=== PATIENT | female | born 1965 | race Caucasian/White ===

== ENCOUNTER 2019-04-03 18:47 | Inpatient (IN) | payer MEDICARE ==
[2019-04-03] MEDS ORDERED: Naloxone HCl 0.4 mg/ml Vial ONE ×2 (18:58→20:45)
[2019-04-03 19:44] LABS: #Eosinphils 0.2 thou/uL (0.0-0.7); #Lymphocytes 1.8 thou/uL (1.20-3.40); #Monocytes 0.6 thou/uL (0.11-0.59); #Neutrophils 2.9 thou/uL (1.40-6.50); %Basophils 0.3 % (0.0-1.0); %Eosinophils 4.3 % (0.0-10.0); %Lymphocytes 32.5 % (21.0-51.0); %Monocytes 10.2 % (0.0-10.0); %Neutrophils 52.7 % (42.0-75.0); Hemoglobin 11.6 g/dL (12.0-16.0); Mean Corpuscular HGB CONC 32.6 g/dL (32.0-36.0); Mean Corpuscular Hemoglobin 25.8 pg (27.0-31.0); Mean Corpuscular Volume 79.1 fL (78.0-98.0); Platelet Count 312 thou/uL (130-400); RBC Distribution Width 13.9 % (11.5-14.5); White Blood Cell (WBC) Count 5.5 thou/uL (4.8-10.8)
--- NOTE | 2019-04-03 19:49 | CT ---
Exam: CT brain PROVIDED CLINICAL HISTORY: Altered mental status COMPARISON: 02/07/2013 FINDINGS: The ventricular system is normal in size and morphology. No evidence for intracranial hemorrhage or mass effect. The extracranial soft tissues and osseous structures demonstrate no evidence for an acute abnormality. IMPRESSION: No evidence for intracranial hemorrhage or mass effect.
[2019-04-03 20:06] LABS: Acetaminophen Less than 6.0 mcg/mL (10.0-30.0); Alcohol Less than 10 mg/dL (Less than 10); CK (CPK) 73 U/L (29-168); Salicylate Less than 8.0 mg/dL (15.0-30.0)
[2019-04-03 20:07] LABS: ALT (SGPT) Less than 7 U/L (8-55); AST (SGOT) 15 U/L (5-34); Albumin 3.7 g/dL (3.5-5.0); Alkaline Phosphatase 81 U/L (40-110); Anion Gap 13 mmol/L (10-20); BUN (Urea Nitrogen) 18 mg/dL (9.8-20.1); Bilirubin, Total 0.2 mg/dL (0.2-1.2); Calc. Creatinine Clearance 0 mL/min (70-130); Calcium 9.3 mg/dL (7.8-10.44); Carbon Dioxide 26 mmol/L (22-29); Chloride 102 mmol/L (98-107); Estimated GFR-MDRD 76; Globulin 3.5 g/dL (2.4-3.5); Glucose 111 mg/dL (70-105); Potassium 3.8 mmol/L (3.5-5.1); Protein, Total 7.2 g/dL (6.0-8.3); Sodium 137 mmol/L (136-145)
[2019-04-03] MEDS ORDERED: Norepinephrine 8 MG/0.9% NS 250 ML ONE (21:06)
[2019-04-03] MEDS ORDERED: Succinylcholine Chloride 20 MG/ML 10 ml SYRINGE FS ONE (21:09)
[2019-04-03] MEDS ORDERED: Propofol 1,000 MG/100 ML VIAL IV ONE (21:23)
[2019-04-03] MEDS ORDERED: Fentanyl 100 MCG/2 ML VIAL ONE (21:54)
[2019-04-03 22:09] LABS: Actual Bicarbonate (HCO3a) 18.7 mEq/L (22-28); Analyzer IN Cardio ER; Base Excess (BEa) -5.9 mEq/L (-2.0 to +3.0); CO2 Tension 33.5 mmHg (35.0-45.0); Calcium, Ionized 1.13 mmol/L (1.12-1.30); Carboxyhemoglobin (COHb) 0.8 gm% (0.0-3.0); Hemoglobin (Hb) 11.3 g/dL (12.0-16.0); O2 Tension (PaO2) 166.1 mmHg (80.0-100.0); pH, Arterial 7.36 (7.35-7.45)
[2019-04-03 22:12] LABS: ALV-art Gradient 148.525 (0-20); Puncture Site LRA
--- NOTE | 2019-04-03 22:18 | RAD ---
EXAM: XR Chest 1 View Portable PROVIDED CLINICAL HISTORY: Respiratory insufficiency COMPARISON: 05/20/2014 FINDINGS: Cardiac and mediastinal silhouette is within normal limits. Endotracheal tube tip is within the proxi mal right main bronchus. Enteric catheter is noted the tip of which is not visualized but is below the diaphragm. Bibasilar airspace disease, possibly reflecting subsegmental atelectasis or infiltrate . Innumerable bilateral calcified nodules are again seen. IMPRESSION: 1. ET tube positioning as described. Recommend retraction. 2. Bibasilar airspace disease, subsegmental atelectasis versus
--- NOTE | 2019-04-03 22:28 | RAD ---
EXAM: XR Chest 1 View Portable PROVIDED CLINICAL HISTORY: Respiratory insufficiency COMPARISON: 04/03/2019 FINDINGS: Interval retraction of ET tube, with tip now projecting in the region of the thoracic inlet. Addition al significant interval change with respect to the prior examination is not evident. IMPRESSION: As above.
[2019-04-03 22:50] LABS: Bilirubin Negative (Negative); Blood, Urine Negative (Negative); Clarity Clear (Clear); Glucose, Urine (Dipstick) Normal (Negative); Leukocyte Negative Leu/uL (Negative); Mucous/LPF 2+ LPF (<2+); Nitrite Negative (Negative); Pregnancy Test - Urine (BHCG) Negative (Negative); Pregu Control Background? CLEAR/WHITE (CLR/WHITE); Pregu Control Bar Appear? YES (CONTROL BAR); Protein, Urine (Dipstick) 200 mg/dL (Neg-Trace); RBC/HPF 0-3 HPF (0-3); Specific Gravity 1.027 (1.002-1.036); Squamous Epithelial 0-3 HPF (0-3); WBC/HPF 0-3 HPF (0-3)
[2019-04-03 22:55] LABS: Medtox Reader # READER 1
[2019-04-03 22:56] LABS: Amphetamine Detected (NotDetected); Barbiturates Screen Not Detected (NotDetected); Benzodiazepine Screen Detected (NotDetected); Cocaine Metabolite Screen Not Detected (NotDetected); Medtox Control Line Valid? VALID (VALID); Methadone Not Detected (NotDetected); Methamphetamine Detected (NotDetected); Opiate Screen Not Detected (NotDetected); Oxycodone Screen Not Detected (NotDetected); Phencyclidine (PCP) Not Detected (NotDetected); THC/Cannabinoid Screen Not Detected (NotDetected); Tricyclic Screen Not Detected (NotDetected)
[2019-04-03 22:58] LABS: Bacteria/HPF Rare-Few HPF (None Seen)
--- NOTE | 2019-04-03 23:05 | PDOC.FPRHP ---
- History of Present Illness Chief Complaint: Overdose History of Present Illness: Ms. Bran is a 54yoF who, per her brother, locked herself in the closet today and took an unknown amount of several medications. Some of the suspected medications include gabapentin, hydroxychloroquine, venlaflaxine, prochlorperazine, and quetiapine. Other history is unobtainable at this time. ED Course: She was intubated, a central line was placed, and she was started on pressors. Fentanyl 100mcg, Propofol, Levophed (5), Succinylcholine, Etomidate, Narcan X2, 2.5L NS - Allergies/Adverse Reactions Allergies Allergy/AdvReac Type Severity Reaction Status Date / Time morphine Allergy Verified 05/20/14 05:15 TPI 287 Allergy Uncoded 05/20/14 05:16 - Home Medications Medication Instructions Recorded Confirmed Type ALPRAZolam [Xanax] 0.5 mg PO BID PRN 06/30/13 05/20/14 History Dicyclomine HCl 20 mg PO QID PRN 06/30/13 05/20/14 History Divalproex Sodium 500 mg PO BID 06/30/13 05/20/14 History Naproxen Sodium [Aleve] 220 mg PO PRN 06/30/13 05/20/14 History Omeprazole/Sodium Bicarbonate 1 cap PO DAILY 06/30/13 05/20/14 History [Zegerid] Venlafaxine HCl [Effexor XR] 150 mg PO DAILY 06/30/13 04/04/19 History Celecoxib [Celebrex] 200 mg PO BID 05/20/14 05/20/14 History Gabapentin 600 mg PO DAILY 04/04/19 04/04/19 History - History PMHx: Anxiety/Depression Brain tumor Stage 4 Melanoma s/p radiation Granulomatous lung disease PSHx: Hysterectomy (1999) C-Secition Sinus surgery Tonsillectomy/Adenoidectomy Left lymphnodectomy Gamma knife radiation Arthroscopy R Lung nodule biopsy FHx: HTN, Colon cancer (mom), DM II, CAD Social: Tobacco use smokes 1-1.5ppd History of intranasal cocaine use Unknown alcohol use. - Review of Systems ROS unobtainable: due to endotracheal tube - Vital signs Selected Entries 04/04/19 00:00 Respiratory 14 Rate O2 Sat by Pulse 100 Oximetry Oxygen Delivery Mechanical Method Ventilator % Fraction of 50 Inspired Oxygen (FIO2) Selected Entries 04/04/19 00:15 Heart Rate from 85 ECG NIBP 131/87 NIBP BP-Mean 101 Respiration 14 from ECG SpO2 100 Ventricular 0 Premature Contraction Freq - Physical Exam Constitutional: NAD -Constitutional: Intubated and sedated HEENT: normocephalic and atraumatic, PERRLA, conjunctiva clear, MMM, oropharynx clear Neck: supple, trachea midline Heart: RRR, normal S1/S2 Lungs: CTAB, no respiratory distress, good air movement Abdomen: soft, bowel sounds present Musculoskeletal: normal structure, normal tone Skin: no rash/lesions, good turgor Heme/Lymphatic: no unusual bruising or bleeding, no purpura FMR H&P: Results - Labs Result Diagrams: 04/04/19 02:17 04/04/19 02:17 Lab results: WBC 5.5 thou/uL (4.8-10.8) 04/03/19 19:21 Hgb 11.6 g/dL (12.0-16.0) L 04/03/19 19:21 Hct 35.6 % (36.0-47.0) L 04/03/19 19:21 MCV 79.1 fL (78.0-98.0) 04/03/19 19:21 Plt Count 312 thou/uL (130-400) 04/03/19 19:21 Neutrophils % 52.7 % (42.0-75.0) 04/03/19 19:21 ABG pH 7.36 (7.35-7.45) 04/03/19 22:00 ABG pCO2 33.5 mmHg (35.0-45.0) L 04/03/19 22:00 ABG pO2 166.1 mmHg (80.0-100.0) H 04/03/19 22:00 Sodium 137 mmol/L (136-145) 04/03/19 19:21 Potassium 3.8 mmol/L (3.5-5.1) 04/03/19 19:21 Chloride 102 mmol/L (98-107) 04/03/19 19:21 Carbon Dioxide 26 mmol/L (22-29) 04/03/19 19:21 BUN 18 mg/dL (9.8-20.1) 04/03/19 19:21 Creatinine 0.79 mg/dL (0.6-1.1) 04/03/19 19:21 Glucose 111 mg/dL (70-105) H 04/03/19 19:21 Calcium 9.3 mg/dL (7.8-10.44) 04/03/19 19:21 Total Bilirubin 0.2 mg/dL (0.2-1.2) 04/03/19 19:21 AST 15 U/L (5-34) 04/03/19 19:21 ALT Less than 7 U/L (8-55) L 04/03/19 19:21 Alkaline Phosphatase 81 U/L (40-110) 04/03/19 19:21 Creatine Kinase 73 U/L (29-168) 04/03/19 19:21 Serum Total Protein 7.2 g/dL (6.0-8.3) 04/03/19 19:21 Albumin 3.7 g/dL (3.5-5.0) 04/03/19 19:21 Urine Ketones Negative mg/dL (Negative) 04/03/19 22:33 Urine Blood Negative (Negative) 04/03/19 22:33 Urine Nitrite Negative (Negative) 04/03/19 22:33 Ur Leukocyte Esterase Negative Chely/uL (Negative) 04/03/19 22:33 Urine RBC 0-3 HPF (0-3) 04/03/19 22:33 Urine WBC 0-3 HPF (0-3) 04/03/19 22:33 Ur Squamous Epith Cells 0-3 HPF (0-3) 04/03/19 22:33 Urine Bacteria Rare-Few HPF (None Seen) 04/03/19 22:33 - Radiology Interpretation Chest x-ray Status: report reviewed by me (FINDINGS: Cardiac and mediastinal silhouette is within normal limits. Endotracheal tube tip is within the proxi mal right main bronchus. Enteric catheter is noted the tip of which is not visualized but is below the diaphragm. Bibasilar airspace disease, possibly reflecting subsegmental atelectasis or infiltrate . Innumerable bilateral calcified nodules are again seen. IMPRESSION: 1. ET tube positioning as described. Recommend retraction. 2. Bibasilar airspace disease, subsegmental atelectasis versus Second CXR showed proper placement of tube) CT scan - head Status: report reviewed by me (IMPRESSION: No evidence for intracranial hemorrhage or mass effect.) FMR H&P: A/P - Problem List (1) Overdose Current Visit: Yes Status: Acute Code(s): T50.901A - POISONING BY UNSP DRUG/ MEDS/BIOL SUBST, ACCIDENTAL, INIT (2) Blood clot of neck vein Current Visit: No Status: Acute Code(s): I82.90 - ACUTE EMBOLISM AND THROMBOSIS OF UNSPECIFIED VEIN (3) Cocaine abuse Current Visit: No Status: Acute Code(s): F14.10 - COCAINE ABUSE, UNCOMPLICATED (4) Depression Current Visit: No Status: Acute Code(s): F32.9 - MAJOR DEPRESSIVE DISORDER, SINGLE EPISODE, UNSPECIFIED (5) GERD (gastroesophageal reflux disease) Current Visit: No Status: Acute Code(s): K21.9 - GASTRO-ESOPHAGEAL REFLUX DISEASE WITHOUT ESOPHAGITIS (6) Hyperlipidemia Current Visit: No Status: Acute Code(s): E78.5 - HYPERLIPIDEMIA, UNSPECIFIED (7) Malignant melanoma Current Visit: No Status: Acute Code(s): C43.9 - MALIGNANT MELANOMA OF SKIN , UNSPECIFIED - Plan Polysubstance overdose -unknown amount of several substances ingested including gabapentin, hydroxychloroquine, venlaflaxine, prochlorperazine, and quetiapine. -Will contact poison control for recommendations -Patient is intubated and sedated -Patient is on pressure support with Levophed -Will monitor VSS closely and await metabolization of drugs. -EKG showed Contacted Poison Control @ [phone] and opened case: Their recommendations are as follows, She is at significant risk of serotonin syndrome or neuroleptic malignant syndrome with this combination of medications. Closely monitor for hyperthermia , rigidity, or tremors. If she exhibits since of cardiac ectopy, increase magnesium concentration >2, if it persists, give mag to a level of 4-5. Common OD reactions are listed below. Hydroxychloroquine - significant cardiac arrhythmias, sudden . Monitor serial ekgs Prochlorperazine - sudden /seizures/NMS Seroquel - anticholinergic symptoms (urinary retention, dry) Venlafaxine - serotonin syndrome Gabapentin - sedation Disposition/LOS: Dispo: Stable, inpatient ICU expected LOS > 48 hours. Code: Full GI PPX: Pepcid VTE: Lovenox FMR H&P: Upper Level - Pertinent history 54 year old female presents via EMS from home after intentional OD. Patient's brother reportedly called EMS and left, so he was unavailable for discussion regarding events leading up to patient's OD. Per EMS, there were several empty medication bottles present at the seen to include venlafaxine, seroquel, hydroxychloroquine, prochlorperazine, gabapentin. Patient last seen at our clinic in June of 2018. She was not on a majority of those medications based on clinic records. Patient also tested positive for methamphetamines, amphetamines, and benzo's on UDS. Patient intubated and sedates. Unable to supply history at this time. Patient has significant history anxiety, depression , and polysubstance abuse. Patient has had suicidal ideations in the past. - Pertinent findings General: Sedated and on ventilator. HEENT: MMM. PERRL. Card: RRR, no murmurs Resp: CTA, mechanically ventilated Abdomen: Soft, no distention Ext: Left arm swelling, likely 2/2 lymph node resection from cancer, no lower extremity swelling - Plan Date/Time: 04/03/19 2305 IAdenike, have evaluated this patient and agree with findings/plan as outlined by environmental intern resident. Pertinent changes/additions are listed here. Polysubstance overdose - Suicidal attempt; will need [facility] when medically stable - Currently on ventilator and sedated - UDS also positive for methamphetamines, amphetamines and benzos - Dr. Maher called and spoke to Poison Control. Given no significant QT prolongation or associated ectopy, recommend repeat EKG now and in AM to assess for changes - Patient high risk for serotonin syndrome given combination of medications presumed to be ingested; monitor temperature closely. Also monitor for rigidity and pupillary dilation. - Pulmonology has already been consulted; appreciate recs - Initial EKG showed sinus tachycardia with QT 471 - Electrolytes WNL, Mg pending - Will give mag if ectopy develops or QT prolongation worsens per Poison Control recommendations. Poor compliance - Has not been seen at our clinic since 06/2018 - Uncertain where patient is getting medications she ingested Tobacco use - Documented in clinic history DVT PPX: Lovenox Code Status: Full Dispo: Admit to CCU. Monitor closely. Case open with Poison Control. Addendum - Attending - Attending Attestation Date/Time: 04/04/19 0054 I personally evaluated the patient and discussed the management with Dr. Jo and Dr. Maher I agree with the History, Examination, Assessment and Plan documented above with any addition or exceptions noted below. unfortunate female admitted for suicide attempt and multiple drug over dose. currently intubate. no family present. history obtained by staff. poison control contacted. Caroline
[2019-04-04] MEDS ORDERED: Norepinephrine 8 MG/0.9% NS 250 ML IVPB PRN (00:57)
[2019-04-04] MEDS ORDERED: CCU Electrolyte Replacement 1 EACH IVPB SCH (00:57)
[2019-04-04] MEDS ORDERED: Lactated Ringer's 1,000 ML IV SCH (01:00)
[2019-04-04] MEDS ORDERED: Magnesium 2 GM/50 ML 2 GM in Premix Bag 1 BAG IVPB PRN (01:10)
[2019-04-04] MEDS ORDERED: Potassium Phosphate 9 MMOL in Sodium Chloride 0.9% 100 ML IVPB PRN (01:10)
[2019-04-04] MEDS ORDERED: Potassium Chloride 40 MEQ in Premix Bag 1 BAG IVPB PRN (01:10)
[2019-04-04] MEDS ORDERED: CCU ELECTROLYTE REPLACEMENT PROTOCOL FS PRN (01:10)
[2019-04-04] MEDS ORDERED: Potassium Chloride 40 MEQ in Sodium Chloride 0.9% 250 ML 250 ML IVPB PRN (01:10)
[2019-04-04] MEDS ORDERED: Magnesium Oxide 400 MG TAB PO PRN ×2 (01:10)
[2019-04-04] MEDS ORDERED: Potassium Phosphate 12 MMOL in Sodium Chloride 0.9% 250 ML 250 ML IV PRN (01:10)
[2019-04-04] MEDS ORDERED: Potassium Phosphate 15 MMOL in Sodium Chloride 0.9% 250 ML 250 ML IV PRN (01:10)
[2019-04-04] MEDS ORDERED: PHOS-NAK 1 PKT PACK PO PRN ×2 (01:10)
[2019-04-04] MEDS ORDERED: Potassium Chloride 20 MEQ TAB PO PRN (01:10)
[2019-04-04] MEDS ORDERED: Propofol 1,000 MG/100 ML VIAL IV PRN (01:47)
[2019-04-04] MEDS ORDERED: Propofol BOLUS 1,000 MG/100 ML VIAL IV PRN (01:47)
[2019-04-04 02:30] LABS: #Eosinphils 0.3 thou/uL (0.0-0.7); #Lymphocytes 2.3 thou/uL (1.20-3.40); #Monocytes 0.8 thou/uL (0.11-0.59); #Neutrophils 5.5 thou/uL (1.40-6.50); %Basophils 0.1 % (0.0-1.0); %Eosinophils 2.9 % (0.0-10.0); %Lymphocytes 26.1 % (21.0-51.0); %Monocytes 9.1 % (0.0-10.0); %Neutrophils 61.8 % (42.0-75.0); Hemoglobin 10.2 g/dL (12.0-16.0); Mean Corpuscular HGB CONC 32.3 g/dL (32.0-36.0); Mean Corpuscular Hemoglobin 25.6 pg (27.0-31.0); Mean Corpuscular Volume 79.3 fL (78.0-98.0); Mean Platelet Volume 6.9 fL (7.4-10.4); Platelet Count 299 thou/uL (130-400); Red Blood Cell (RBC) Count 3.97 mill/uL (4.20-5.40); White Blood Cell (WBC) Count 8.8 thou/uL (4.8-10.8)
[2019-04-04 02:55] LABS: Anion Gap 11 mmol/L (10-20); BUN (Urea Nitrogen) 17 mg/dL (9.8-20.1); Calc. Creatinine Clearance 85 mL/min (70-130); Calcium 8.3 mg/dL (7.8-10.44); Carbon Dioxide 25 mmol/L (22-29); Chloride 109 mmol/L (98-107); Estimated GFR-MDRD 81; Glucose 98 mg/dL (70-105); Potassium 4.5 mmol/L (3.5-5.1); Sodium 140 mmol/L (136-145)
[2019-04-04] MEDS ORDERED: Magnesium 2 GM/50 ML 2 GM in Premix Bag 1 BAG IVPB SCH (03:00)
[2019-04-04] MEDS ORDERED: Ventilator Sedation Protocol 1 EACH FS SCH (03:00)
[2019-04-04] MEDS ORDERED: DISCONTINUE PREVIOUS NARCOTIC PAIN MEDICATIONS AND BENZODIAZEPINES FS SCH (03:11)
[2019-04-04] MEDS ORDERED: fentaNYL Citrate/PF 2,000 MCG in Sodium Chloride 0.9% 60 ML IV SCH (03:11)
[2019-04-04] MEDS ORDERED: Lorazepam 2 MG/ML VIAL SLOW IVP PRN (03:11)
[2019-04-04] MEDS ORDERED: Fentanyl BOLUS 250 ML IVPB PRN (03:11)
[2019-04-04 07:35] VITALS: BP 91/62
[2019-04-04] MEDS: Enoxaparin Sodium 40 MG/0.4 ML SYRINGE SC SCH (08:49)
[2019-04-04] MEDS: Famotidine/PF 20 mg/2ml Vial SLOW IVP SCH ×2 (08:49→20:00)
--- NOTE | 2019-04-04 08:49 | PDOC.FM ---
- Subjective Subjective: pt resting, intubated. Per nursing pt is following commands on sedation vacation. - Objective Vital Signs & Weight: Vital Signs (12 hours) Temp Pulse Resp BP Pulse Ox 04/04/19 07:34 83 91/62 04/04/19 06:00 14 04/04/19 04:00 98.9 F 14 04/04/19 02:00 14 04/04/19 00:00 97.8 F 14 100 Weight Weight 64.1 kg Most Recent Monitor Data Heart Rate from ECG 79 NIBP 116/75 NIBP BP-Mean 88 Respiration from ECG 14 SpO2 100 I&O: 04/03/19 04/04/19 04/05/19 06:59 06:59 06:59 Intake Total 328.1 Output Total 200 Balance 128.1 Result Diagrams: 04/04/19 02:17 04/05/19 09:28 Phys Exam - Physical Examination Constitutional: NAD HEENT: moist MMs Neck: no JVD, supple Respiratory: no wheezing, no rales Cardiovascular: RRR, no significant murmur Gastrointestinal: soft, non-tender Musculoskeletal: no edema, pulses present sedated Deviation from normal: sedated Skin: no rash, normal turgor Dx/Plan (1) Overdose Code(s): T50.901A - POISONING BY UNSP DRUG/MEDS/BIOL SUBST, ACCIDENTAL, INIT Status: Acute (2) Depression Code(s): F32.9 - MAJOR DEPRESSIVE DISORDER, SINGLE EPISODE, UNSPECIFIED Status : Acute - Plan Plan: Polysubstance overdose A- unknown amount of several substances ingested including gabapentin, hydroxychloroquine, venlaflaxine, prochlorperazine, and quetiapine. Patient is intubated and sedated Contacted Poison Control @ 1230 and opened case: Their recommendations are as follows, She is at significant risk of serotonin syndrome or neuroleptic malignant syndrome with this combination of medications. Closely monitor for hyperthermia , rigidity, or tremors. If she exhibits since of cardiac ectopy, increase magnesium concentration >2, if it persists, give mag to a level of 4-5. Plan- continue IVF -repeat EKG this AM -likely extubate today Common OD reactions are listed below. Hydroxychloroquine - significant cardiac arrhythmias, sudden . Monitor serial ekgs Prochlorperazine - sudden /seizures/NMS Seroquel - anticholinergic symptoms (urinary retention, dry) Venlafaxine - serotonin syndrome Gabapentin - sedation stage 4 metastatic melanoma A- was in remission in last admission in 2014 P- will gain more hx once pt extubated Depression A- uncontrolled P- will consult MHMR once pt is medically stable Disposition/LOS: Code: Full GI PPX: Pepcid VTE: Lovenox Addendum - Attending - Attending Attestation Date/Time: 04/06/19 6808 I personally evaluated the patient and discussed the management with Dr. Guerra I agree with the History, Examination, Assessment and Plan documented above with any addition or exceptions noted below.
[2019-04-04] MEDS: Lactated Ringer's 1,000 ML IV SCH ×4 (08:52→21:38)
[2019-04-04] MEDS ORDERED: DC Sedation Protocol FS ONE (10:05)
--- NOTE | 2019-04-04 10:32 | CON ---
DATE OF CONSULTATION: 04/04/2019 35 minutes of critical care time. I have been consulted to see Ms. Bran who is a 54-year-old admitted to the [facility] Medicine service with a polysubstance overdose. She was intubated because of lethargy. She was hypotensive, had to have a central line placed and was on Levophed. She is currently awake, alert, following commands and probably rated to be extubated. PAST MEDICAL HISTORY: 1. Anxiety. 2. Depression. 3. Brain tumor. 4. Stage IV melanoma. 5. Granulomatous lung disease. PAST SURGICAL HISTORY: 1. Hysterectomy. 2. . 3. Sinus surgery. 4. Tonsillectomy. 5. Gamma knife radiation in the brain. 6. Arthroscopy. 7. Right lung nodule biopsy. FAMILY MEDICAL HISTORY: Remarkable for hypertension, colon cancer, diabetes, and coronary artery disease. SOCIAL HISTORY: Smokes 1 to 1-1/2 half packs per day. Uses cocaine intranasally. Her drug screen is positive for amphetamines, methamphetamines, and benzodiazepines. MEDICATIONS: Prior to admission; 1. Gabapentin. 2. Effexor. 3. Zegerid. 4. Aleve. 5. Divalproex. 6. Dicyclomine. 7. Celebrex. 8. Xanax. Current inpatient medications reviewed, see chart. REVIEW OF SYSTEMS: Cannot be obtained as she is currently on mechanical ventilation. ALLERGIES: MORPHINE. PHYSICAL EXAMINATION: VITAL SIGNS: Temperature 98.9, pulse 79, blood pressure 116/75, O2 saturation 100%. NEUROLOGICAL: She will follow commands without difficulty. HEENT: Otherwise unremarkable. NECK: No adenopathy or JVD. LUNGS: Clear to auscultation. CARDIAC: S1 and S2 regular without murmur. ABDOMEN: Soft and nontender to palpation. EXTREMITIES: No clubbing, cyanosis, or edema. LABORATORY DATA: White blood cell count 8.8, hematocrit 31.5, and platelet count 299. PH of 7.36, pCO2 of 34, PO2 of 166. Sodium 140, potassium 4.5, chloride 109, CO2 of 25, BUN 17, creatinine 0.7, and glucose 98. Chest x-ray shows no mass, effusion. She has scattered interstitial changes bilaterally and looking at the x-rays from 2015 maybe these changes are chronic. ASSESSMENT: 1. Polysubstance overdose with gabapentin, hydroxychloroquine, Effexor, and quetiapine. 2. No obvious laboratory abnormalities or EKG changes that would preclude extubation. PLAN: 1. Extubate and observe. 2. Continue hydration. Job ID: [id number]
[2019-04-05] MEDS: Lactated Ringer's 1,000 ML IV SCH ×2 (04:52→19:19)
[2019-04-05] MEDS: Enoxaparin Sodium 40 MG/0.4 ML SYRINGE SC SCH (07:51)
[2019-04-05] MEDS: Famotidine/PF 20 mg/2ml Vial SLOW IVP SCH ×2 (07:51→21:07)
--- NOTE | 2019-04-05 08:55 | PDOC.FM ---
- Subjective Subjective: Pt resting comfortably, she is more alert, reports feelign tired. Reports she remembers intentionally overdosing. currently denies SI, intent or plan. - Objective Vital Signs & Weight: Vital Signs (12 hours) Temp 04/05/19 04:00 98.2 F 04/05/19 00:00 98.9 F Weight Weight 66.9 kg Most Recent Monitor Data Heart Rate from ECG 95 NIBP 109/66 NIBP BP-Mean 80 Respiration from ECG 20 SpO2 96 I&O: 04/04/19 04/05/19 04/06/19 06:59 06:59 06:59 Intake Total 328.1 4727 Output Total 200 980 Balance 128.1 3747 Result Diagrams: 04/04/19 02:17 04/04/19 02:17 Phys Exam - Physical Examination Constitutional: NAD HEENT: moist MMs, sclera anicteric Neck: no nodes, no JVD Respiratory: no wheezing, no rales Cardiovascular: RRR, no significant murmur Gastrointestinal: soft, non-tender Musculoskeletal: pulses present Neurological: normal sensation, moves all 4 limbs Psychiatric: normal affect Skin: no rash, normal turgor Dx/Plan (1) Overdose Code(s): T50.901A - POISONING BY UNSP DRUG/MEDS/BIOL SUBST, ACCIDENTAL, INIT Status: Acute (2) Depression Code(s): F32.9 - MAJOR DEPRESSIVE DISORDER, SINGLE EPISODE, UNSPECIFIED Status : Acute - Plan Plan: Polysubstance overdose A- Improved. Pt appears to be almost at baseline in mental status. she is medically cleared. unknown amount of several substances ingested including gabapentin, hydroxychloroquine, venlaflaxine, prochlorperazine, and quetiapine. Patient is no longer intubated and sedated P- continue IVF -consult [facility] stage 4 metastatic melanoma -in remission, MD aware Depression -per plan above Disposition/LOS: Code: Full GI PPX: Pepcid VTE: Lovenox
--- NOTE | 2019-04-05 09:30 | EKG ---
Test Reason : FOLLOW UP Blood Pressure : / mmHG Vent. Rate : 081 BPM Atrial Rate : 081 BPM P-R Int : 142 ms QRS Dur : 082 ms QT Int : 428 ms P-R-T Axes : 071 068 059 degrees QTc Int : 497 ms Normal sinus rhythm Possible Left atrial enlargement Prolonged QT Abnormal ECG When compared with ECG of 20-MAY-2014 01:24, QT has lengthened Confirmed by DR. Nelson SCHMIDT (3) on 04/05/2019 9:29:56 AM Referred By: ALYX Confirmed By:DR. Nelson SCHMIDT
--- NOTE | 2019-04-05 09:32 | EKG ---
Test Reason : Blood Pressure : / mmHG Vent. Rate : 082 BPM Atrial Rate : 082 BPM P-R Int : 142 ms QRS Dur : 080 ms QT Int : 418 ms P-R-T Axes : 074 062 056 degrees QTc Int : 488 ms Normal sinus rhythm Prolonged QT Abnormal ECG No previous ECGs available Confirmed by DR. Nelson SCHMIDT (3) on 04/05/2019 9:31:41 AM Referred By: TEODORA *R Confirmed By:DR. Nelson SCHMIDT
[2019-04-05 09:58] LABS: ALT (SGPT) 9 U/L (8-55); AST (SGOT) 20 U/L (5-34); Albumin 2.8 g/dL (3.5-5.0); Alkaline Phosphatase 74 U/L (40-110); Anion Gap 11 mmol/L (10-20); BUN (Urea Nitrogen) 13 mg/dL (9.8-20.1); Bilirubin, Total 0.5 mg/dL (0.2-1.2); Calc. Creatinine Clearance 92 mL/min (70-130); Calcium 8.4 mg/dL (7.8-10.44); Carbon Dioxide 24 mmol/L (22-29); Chloride 102 mmol/L (98-107); Estimated GFR-MDRD 82; Protein, Total 5.8 g/dL (6.0-8.3); Sodium 133 mmol/L (136-145)
[2019-04-05 10:04] LABS: Glucose 43 mg/dL (70-105)
[2019-04-05] MEDS ORDERED: Furosemide 40 MG/4 ML VIAL ONE (14:34)
[2019-04-05] MEDS ORDERED: Furosemide 20 MG/2 ML VIAL SLOW IVP SCH (14:45)
--- NOTE | 2019-04-05 14:55 | PRG ---
DATE OF SERVICE: 04/05/2019 SERVICE: Pulmonary Medicine. INTERVAL HISTORY: The patient is doing really well from respiratory standpoint. She has been extubated comfortably. Her urine output dropped off, so she was given aggressive fluids. She denies any fevers or chills. She is currently not short of breath. She is on clear liquid diet. She is requesting more substantive food. PHYSICAL EXAMINATION: VITAL SIGNS: Afebrile. Pulse 94, blood pressure 129/77, respirations 22, saturations 91%, currently on 2 L nasal cannula. GENERAL: The patient is awake and alert, in no apparent distress. LUNGS: Extensive crackling is present in bibasilar regions. No prolonged expiratory phase is otherwise appreciated. HEART: Normal rate, regular. ABDOMEN: Soft, nontender, nondistended. Bowel sounds are positive. MUSCULOSKELETAL: No cyanosis or clubbing. There is 1 to 2+ pitting in bilateral lower extremities. NEUROLOGIC: Grossly nonfocal. LABORATORY DATA: Glucose 43. Basic metabolic profile and liver function studies are otherwise unremarkable. Urinalysis is negative. Urine drug screen is positive for multiple substances. ASSESSMENT: 1. Acute hypoxic respiratory. 2. Polysubstance drug overdose with gabapentin, hydroxychloroquine, Effexor, and Seroquel. DISCUSSION AND PLAN: I will discontinue her IV fluids. I will give her a dose of Lasix. From a lung standpoint, she is stable for transition out of the hospital or to the medical unit. When that occurs, she will have no further requirements for Pulmonary or Critical Care opinion, and we will sign off. Please call with additional questions or concerns through time. Job ID: [id number]
[2019-04-05] MEDS ORDERED: Acetaminophen 325 MG TAB PO PRN (16:02)
[2019-04-05 20:53] VITALS: TEMP 98.2
[2019-04-06] MEDS ORDERED: Furosemide 20 MG/2 ML VIAL SLOW IVP SCH (09:00)
--- NOTE | 2019-04-06 11:41 | DIS ---
DATE OF ADMISSION: 04/03/2019 DATE OF DISCHARGE: 04/05/2019 ADMITTING ATTENDING: Dr. Shanice Freeman. DISCHARGE ATTENDING: Dr. Bernard Carroll. RESIDENT: Bernard Guerra MD CONSULTS: Pulmonology, Dr. Reggie Ventura. IMAGING: Chest x-ray on 04/03/2019; impression, ET tube in normal placement. On 04/03/2019, brain CT; impression, no evidence for intracranial hemorrhage or mass effect. On 04/03/2019, chest x-ray; impression, ET tube position as described above. Recommend retraction. Bibasilar airspace disease, subsegmental atelectasis. DISCHARGE MEDICATIONS: Home medications resumed at home as listed: 1. Omeprazole/sodium bicarbonate 20 mg/1100 mg one capsule p.o. daily. 2. Aleve 220 mg p.o. p.r.n. 3. Dicyclomine 20 mg p.o. q.i.d. p.r.n. 4. Xanax 0.5 mg p.o. b.i.d. p.r.n. 5. Venlafaxine 150 mg p.o. daily. 6. Divalproex sodium 500 mg p.o. b.i.d. 7. Gabapentin 600 mg p.o. daily. DISCONTINUED MEDICATIONS: Celecoxib 200 mg p.o. b.i.d. PRIMARY DIAGNOSIS: Intentional polysubstance overdose. SECONDARY DIAGNOSES: 1. Uncontrolled depression. 2. History of stage IV metastatic melanoma. HISTORY OF PRESENT ILLNESS/HOSPITAL COURSE: This is a 54-year-old female with history of depression, who presented after polysubstance intentional overdose including several antipsychotics, benzo. Additionally, her urine drug screen showed evidence of methamphetamine and cocaine use. I personally saw the patient for 2 days. The patient was admitted to the CCU and intubated. Additionally, she was put on pressors initially. Poison Control was consulted and recommended watching for prolonged QT interval as well as serotonin syndrome. The patient responded well to IV fluids and rest and was quickly weaned off the pressors and vent. There were no complications with her overdose, and she was deemed medically stable for transfer quickly. [facility] was consulted and stated the patient continued to be discharged to inpatient psychiatry. DISPOSITION: Stable. DISCHARGE INSTRUCTIONS: 1. Location: Inpatient psychiatry. 2. Activity: As tolerated. 3. Diet: No restriction. 4. Followup: Followup as determined by inpatient psych and with primary care physician in 7 days. Job ID: [id number]
--- NOTE | 2019-04-07 06:23 | PQF ---
ARRON Scott JOSEPH [id number] CLINICAL DOCUMENTATION CLARIFICATION FORM: POST DISCHARGE Addendum to original discharge summary date: ____ Late entry note date: __ DATE: 04/07/2018 ATTN:LEEANNA VO Please exercise your independent, professional judgment in responding to the clarification form. Clinical indicators are provided on the bottom of this form for your review Please check appropriate box(s) to clarify if the following diagnosis has been ruled in or ruled out: Acute respiratory failure [ ] Ruled in diagnosis [ ] Continue to treat [ ] Resolved [ ] Ruled out diagnosis [ ] Cannot rule out diagnosis [ ] Other diagnosis [ X ] Unable to determine For continuity of documentation, please document condition throughout progress notes and discharge summary. Thank You. CLINICAL INDICATORS - SIGNS / SYMPTOMS / LABS - Acute hypoxic respiratory- Progress note, 04/05, LEEANNA VO MD - Saturation's: 91% currently on 2L nasal cannula- Progress note, 04/05, LEEANNA VO MD - Extensive cracking is present in bibasilar regions- Progress note, 04/05, LEEANNA VO MD - Bibasilar airspace disease-DS, 04/05, Bernrad Geurra MD RISK FACTORS - Intentional poly substance overdose -DS, 04/05, Bernard Guerra MD - Subsegmental atelectasis--DS, 04/05, Bernard Guerra MD TREATMENTS - Mechanical ventilation- 04/04 (This form is maintained as a part of the permanent medical record) 2014 [email or web address]. All Rights Reserved Cory Flores [not provided] [not provided] MTDD
== END 2019-04-05 23:45 | disposition home or self-care (01) | DRG 918 ==
LOC: ERS 18:47 → CCU 23:53
PROVIDERS: ADMIT Student in an Organized Health Care Education/Training Program; ATTEND Student in an Organized Health Care Education/Training Program
PROC: 0BH17EZ Insertion of Endotracheal Airway into Trachea, Via Natural or Artificial Opening (ICD-10-PCS; principal; 2019-04-04)
PROC: 5A1935Z Respiratory Ventilation, Less than 24 Consecutive Hours (ICD-10-PCS; 2019-04-04)
DX: T42.4X2A Poisoning by benzodiazepines, intentional self-harm, initial encounter (principal); J98.11 Atelectasis; I82.90 Acute embolism and thrombosis of unspecified vein; F32.9 Major depressive disorder, single episode, unspecified; F41.9 Anxiety disorder, unspecified; F17.210 Nicotine dependence, cigarettes, uncomplicated; F14.10 Cocaine abuse, uncomplicated; I95.9 Hypotension, unspecified; T42.6X2A Poisoning by other antiepileptic and sedative-hypnotic drugs, intentional self-harm, initial encounter; T37.8X2A Poisoning by other specified systemic anti-infectives and antiparasitics, intentional self-harm, initial encounter; Z90.710 Acquired absence of both cervix and uterus; Y92.9 Unspecified place or not applicable
CPT/HCPCS: 36415; 36416; 70450; 71045; 80048; 80053; 80306; 80307; 81003; 81015; 81025; 82550; 82805; 83735; 84443; 85025; 93005; 93010; 94002; 94003; C1769; J1650; J1940; J2310; J2704; J3010; J3475; S0028

== ENCOUNTER 2021-02-19 08:33 | Outpatient (CLI) | payer MEDICARE | END 2021-02-19 08:34 | disposition home or self-care (01) | LOC: CT 08:33 | PROVIDERS: ATTEND Internal Medicine Hematology & Oncology | DX: C43.62 Malignant melanoma of left upper limb, including shoulder (principal); D50.0 Iron deficiency anemia secondary to blood loss (chronic); G93.9 Disorder of brain, unspecified | CPT/HCPCS: 70553; 71260; 74177 ==

== ENCOUNTER 2021-08-25 14:11 | Outpatient (CLI) | payer MEDICARE ==
[2021-08-25 16:02] LABS: #Basophils 0.1 10x3/uL (0.0-0.2); #Eosinphils 0.4 10x3/uL (0.0-0.5); #Monocytes 0.8 10x3/uL (0.0-1.1); %Basophils 0.8 % (0.0-2.0); %Eosinophils 5.7 % (0.0-6.0); %Lymphocytes 30.1 % (18.0-47.0); %Monocytes 10.2 % (0.0-10.0); %Neutrophils 52.9 % (40.0-75.0); Hemoglobin 13.9 g/dL (12.0-15.5); Mean Corpuscular HGB CONC 33.3 g/dL (32.0-36.0); Mean Corpuscular Hemoglobin 28.5 pg (27.0-33.0); Mean Corpuscular Volume 85.6 fl (81.6-98.3); Mean Platelet Volume 9.5 fl (7.4-10.4); Platelet Count 445 10x3/uL (150-450); RBC Distribution Width 12.7 % (11.5-14.5); Red Blood Cell (RBC) Count 4.87 10x6/uL (3.90-5.03); White Blood Cell (WBC) Count 7.6 10x3/uL (3.5-10.5)
[2021-08-25 16:31] LABS: Anion Gap 17 mmol/L (10-20); BUN (Urea Nitrogen) 14 mg/dL (9.8-20.1); Calc. Creatinine Clearance 0 mL/min (70-130); Calcium 9.7 mg/dL (7.8-10.44); Carbon Dioxide 25 mmol/L (22-29); Chloride 100 mmol/L (98-107); Glucose 94 mg/dL (70-105); Potassium 5.1 mmol/L (3.5-5.1); Sodium 137 mmol/L (136-145)
[2021-08-26 00:02] LABS: SARS-CoV-2 PCR by NAA Not Detected (NotDetected)
== END 2021-08-25 14:12 | disposition home or self-care (01) ==
LOC: LABBT 14:11
PROVIDERS: ATTEND Orthopaedic Surgery
DX: Z01.818 Encounter for other preprocedural examination (principal); M75.101 Unspecified rotator cuff tear or rupture of right shoulder, not specified as traumatic; S43.431A Superior glenoid labrum lesion of right shoulder, initial encounter; M67.921 Unspecified disorder of synovium and tendon, right upper arm; M75.81 Other shoulder lesions, right shoulder; Z20.822 Contact with and (suspected) exposure to COVID-19
CPT/HCPCS: 80048; 85025; 93005; U0003; U0005; 93010

== ENCOUNTER 2021-08-27 06:22 | Day surgery (SDC) | payer MEDICARE ==
[2021-08-26 10:29] VITALS: BMI 25.0
[2021-08-27] MEDS ORDERED: Fentanyl 100 MCG/2 ML VIAL ONE ×2 (06:46→09:35)
[2021-08-27] MEDS ORDERED: Midazolam HCl 2 mg/2 ml Vial ONE (06:46)
[2021-08-27] MEDS ORDERED: Lidocaine 1% w/Epinephrine 1:100K 20 ML VIAL ONE (06:48)
[2021-08-27] MEDS ORDERED: CEFAZOLIN 2 GM VIAL ONE (06:55)
[2021-08-27] MEDS ORDERED: Sodium Chloride 0.9% 100 ML ONE (06:55)
[2021-08-27] MEDS ORDERED: fentaNYL Citrate/PF 100 MCG/2 ML SYRINGE ONE (07:26)
[2021-08-27] MEDS ORDERED: Phenylephrine 10 MG/ML VIAL ONE (07:50)
[2021-08-27] MEDS ORDERED: Ropivacaine 0.2% 550 ML 550 ML NERVE BLCK SCH (08:45)
[2021-08-27] MEDS ORDERED: Promethazine HCl 25 MG/ML VIAL IM PRN (08:45)
[2021-08-27] MEDS ORDERED: Zolpidem Tartrate 5 MG TAB PO PRN (08:45)
[2021-08-27] MEDS ORDERED: HYDROcodone/Acetaminophen 5/325 mg Tablet PO PRN ×2 (08:45)
[2021-08-27] MEDS ORDERED: Ondansetron PF 4 MG/2 ML Vial IVP PRN (08:45)
[2021-08-27] MEDS ORDERED: Ketorolac Tromethamine 30 MG/ML VIAL IVP PRN (08:45)
[2021-08-27] MEDS ORDERED: traMADol HCl 50 MG TAB PO PRN ×2 (08:45)
[2021-08-27] MEDS ORDERED: SUGAMMADEX SODIUM 200 MG/2 ML VIAL ONE (09:07)
== END 2021-08-27 12:38 | disposition home or self-care (01) ==
LOC: SDC 06:22
PROVIDERS: ATTEND Orthopaedic Surgery
PROC: 0LM14ZZ Reattachment of Right Shoulder Tendon, Percutaneous Endoscopic Approach (ICD-10-PCS; principal; 2021-08-27)
PROC: 0LS30ZZ Reposition Right Upper Arm Tendon, Open Approach (ICD-10-PCS; 2021-08-27)
PROC: 0RHJ04Z Insertion of Internal Fixation Device into Right Shoulder Joint, Open Approach (ICD-10-PCS; 2021-08-27)
PROC: 3E0T3BZ Introduction of Anesthetic Agent into Peripheral Nerves and Plexi, Percutaneous Approach (ICD-10-PCS; 2021-08-27)
DX: M75.121 Complete rotator cuff tear or rupture of right shoulder, not specified as traumatic (principal); S43.431A Superior glenoid labrum lesion of right shoulder, initial encounter; M75.81 Other shoulder lesions, right shoulder; Z79.1 Long term (current) use of non-steroidal anti-inflammatories (NSAID); Z79.899 Other long term (current) drug therapy; Z88.5 Allergy status to narcotic agent; Z88.8 Allergy status to other drugs, medicaments and biological substances
CPT/HCPCS: 23430; 29827; 64416; A4306; C1713; J2250; J2370; J2795; J3010; J3490

== ENCOUNTER 2023-01-09 12:29 | Emergency (ER) | payer MEDICARE ==
[2023-01-09] MEDS ORDERED: Ibuprofen 800 MG TAB ONE (13:38)
[2023-01-09 13:45] LABS: #Eosinphils 0.3 thou/uL (0.0-0.7); #Monocytes 0.5 thou/uL (0.11-0.59); #Neutrophils 2.8 thou/uL (1.40-6.50); %Basophils 0.6 % (0.0-1.0); %Eosinophils 6.2 % (0.0-10.0); %Lymphocytes 30.9 % (21.0-51.0); %Monocytes 9.9 % (0.0-10.0); %Neutrophils 52.2 % (42.0-75.0); Hematocrit 37.8 % (36.0-47.0); Hemoglobin 12.6 g/dL (12.0-16.0); Mean Corpuscular HGB CONC 33.3 g/dL (32.0-36.0); Mean Corpuscular Hemoglobin 28.8 pg (27.0-31.0); Mean Corpuscular Volume 86.5 fl (78.0-98.0); Mean Platelet Volume 9.2 fL (7.4-10.4); Platelet Count 238 10x3/uL (130-400); RBC Distribution Width 13.1 % (11.5-14.5); Red Blood Cell (RBC) Count 4.37 mill/uL (4.20-5.40); White Blood Cell (WBC) Count 5.3 10x3/uL (4.8-10.8)
[2023-01-09 14:06] LABS: ALT (SGPT) 11 U/L (8-55); AST (SGOT) 18 U/L (5-34); Albumin 3.8 g/dL (3.5-5.0); Alkaline Phosphatase 68 U/L (40-110); Anion Gap 14 mmol/L (10-20); BUN (Urea Nitrogen) 20 mg/dL (9.8-20.1); Bilirubin, Total 0.2 mg/dL (0.2-1.2); Calc. Creatinine Clearance 0 mL/min (70-130); Carbon Dioxide 23 mmol/L (22-29); Chloride 105 mmol/L (98-107); Estimated GFR 97; Globulin 3.5 g/dL (2.4-3.5); Glucose 87 mg/dL (70-105); Potassium 4.4 mmol/L (3.5-5.1); Protein, Total 7.3 g/dL (6.0-8.3); Sodium 138 mmol/L (136-145)
[2023-01-09] MEDS ORDERED: Acetaminophen 500 MG TAB ONE (20:43)
== END 2023-01-09 16:39 ==
LOC: ERS 12:29
DX: I82.B11 Acute embolism and thrombosis of right subclavian vein (principal); I82.C11 Acute embolism and thrombosis of right internal jugular vein; K92.2 Gastrointestinal hemorrhage, unspecified; F17.210 Nicotine dependence, cigarettes, uncomplicated
CPT/HCPCS: 36415; 80053; 83605; 85025; 85379; J1650

== ENCOUNTER 2023-01-09 17:23 | Observation (INO) | payer MEDICARE ==
[~2023-01-09 17:23] MED LIST: Iopamidol-370 76% 500 ML MDV (1 ML CHARGE) ONE
[2023-01-09] MEDS ORDERED: Acetaminophen 325 MG TAB PO PRN (19:52)
[2023-01-09 20:09] LABS: INR-International Normal Ratio 0.9; PTT 32.9 sec (22.9-36.1); Prothrombin Time 12.9 sec (12.0-14.7)
[2023-01-09 20:28] LABS: Troponin I Less than 0.010 ng/mL (< 0.028)
[2023-01-09] MEDS ORDERED: Hydroxychloroquine Sulfate 200 MG TAB PO SCH (21:00)
[2023-01-09 22:24] VITALS: BMI 24.0
[2023-01-09] MEDS ORDERED: Leflunomide 10 mg Tablet PO SCH (22:45)
[2023-01-09] MEDS: Ibuprofen 800 MG TAB PO PRN (22:47)
[2023-01-10] MEDS ORDERED: traMADol HCl 50 MG TAB PO PRN (02:34)
[2023-01-10 05:28] LABS: #Eosinphils 0.3 thou/uL (0.0-0.7); #Monocytes 0.6 thou/uL (0.11-0.59); #Neutrophils 2.1 thou/uL (1.40-6.50); %Basophils 0.7 % (0.0-1.0); %Eosinophils 7.6 % (0.0-10.0); %Lymphocytes 32.3 % (21.0-51.0); %Monocytes 12.5 % (0.0-10.0); %Neutrophils 46.9 % (42.0-75.0); Hematocrit 35.2 % (36.0-47.0); Hemoglobin 11.5 g/dL (12.0-16.0); Mean Corpuscular HGB CONC 32.7 g/dL (32.0-36.0); Mean Corpuscular Hemoglobin 28.3 pg (27.0-31.0); Mean Corpuscular Volume 86.7 fl (78.0-98.0); Mean Platelet Volume 9.3 fL (7.4-10.4); Platelet Count 207 10x3/uL (130-400); RBC Distribution Width 13.1 % (11.5-14.5); Red Blood Cell (RBC) Count 4.06 mill/uL (4.20-5.40); White Blood Cell (WBC) Count 4.5 10x3/uL (4.8-10.8)
[2023-01-10 05:48] LABS: ALT (SGPT) 10 U/L (8-55); AST (SGOT) 16 U/L (5-34); Albumin 3.5 g/dL (3.5-5.0); Alkaline Phosphatase 66 U/L (40-110); Anion Gap 13 mmol/L (10-20); BUN (Urea Nitrogen) 22 mg/dL (9.8-20.1); Bilirubin, Total 0.2 mg/dL (0.2-1.2); Calc. Creatinine Clearance 70 mL/min (70-130); Calcium 9.1 mg/dL (7.8-10.44); Carbon Dioxide 25 mmol/L (22-29); Chloride 104 mmol/L (98-107); Estimated GFR 89; Globulin 3.3 g/dL (2.4-3.5); Glucose 115 mg/dL (70-105); Potassium 4.5 mmol/L (3.5-5.1); Protein, Total 6.8 g/dL (6.0-8.3); Sodium 137 mmol/L (136-145)
[2023-01-10] MEDS ORDERED: FLU VACC QS2023-24(6MOS UP)/PF 60 MCG/0.5 ML SYRINGE IM ONE (09:00)
[2023-01-10] MEDS ORDERED: Leflunomide 10 mg Tablet PO SCH ×2 (09:00→21:00)
[2023-01-10 11:58] VITALS: BP 123/60; TEMP 98
[2023-01-10] MEDS: Ibuprofen 800 MG TAB PO PRN (12:14)
[2023-01-10] MEDS ORDERED: Apixaban 5 MG TAB PO SCH (21:00)
[2023-01-11] MEDS ORDERED: Hydroxychloroquine Sulfate 200 MG TAB PO SCH (21:00)
[2023-01-12 11:02] LABS: Cardiolipin IgA Ab 1.8 APL-U/mL (<14 Negative); Cardiolipin IgG Ab 0.7 GPL-U/mL (<10 Negative); Cardiolipin IgM Ab 5.3 MPL-U/mL (<10 Negative); EliA APS New Method **** NEW METHOD ****; beta-2-Glycoprotein I IgA Ab 1.7 U/mL (<7 Negative); beta-2-Glycoprotein I IgG Ab Less than 0.8 U/mL (<7 Negative); beta-2-Glycoprotein I IgM Abs Less than 2.4 U/mL (<7 Negative)
[2023-01-14 15:33] LABS: DRVVT Confirm 34.9; HEX PHOS LA Tube 1 42.5 SEC; HEX PHOS LA Tube 2 41.6 SEC; Hexagonal Phospholipid Neut 0.8 SEC (0-8.0); Protein C Activity 89 % (78-152)
[2023-01-14 19:14] LABS: Factor V Mutation (Leiden) See below: (.)
[2023-01-14 19:41] LABS: INR-International Normal Ratio 0.9; PTT 31.7 sec (22.9-36.1); Prothrombin Time 12.8 sec (12.0-14.7)
== END 2023-01-10 13:31 | disposition home or self-care (01) ==
LOC: ERS 17:23 → 2SW 19:36
PROVIDERS: ADMIT Family Medicine; ATTEND Family Medicine
DX: I82.C11 Acute embolism and thrombosis of right internal jugular vein (principal); I82.B11 Acute embolism and thrombosis of right subclavian vein; M06.9 Rheumatoid arthritis, unspecified; C43.9 Malignant melanoma of skin, unspecified; F17.210 Nicotine dependence, cigarettes, uncomplicated; Z90.710 Acquired absence of both cervix and uterus; Z88.5 Allergy status to narcotic agent; Z88.8 Allergy status to other drugs, medicaments and biological substances; Z79.1 Long term (current) use of non-steroidal anti-inflammatories (NSAID); K92.2 Gastrointestinal hemorrhage, unspecified
CPT/HCPCS: 71275; 80053 ×2; 81241; 83605; 83880; 84484; 85025 ×2; 85300; 85303; 85305; 85379; 85390; 85598; 85610 ×2; 85613; 85730 ×2; 86146; 86147; 93971; 96372 ×2; 99284; G0378 ×3; 36415; 36416; J1650; Q9967

== ENCOUNTER 2024-11-22 16:37 | Emergency (ER) | payer OTHER ==
[2024-11-22] MEDS ORDERED: Ketorolac Tromethamine 30 MG (1 mL) VIAL ONE (19:47)
[2024-11-22 19:55] LABS: #Basophils 0.06 10x3/uL (0.0-0.2); #Eosinophils 0.07 10x3/uL (0.0-0.7); #Monocytes 0.80 10x3/uL (0.11-0.59); #Neutrophils 5.98 10x3/uL (1.40-6.50); %Basophils 0.7 % (0.0-1.0); %Eosinophils 0.8 % (0.0-10.0); %Lymphocytes 16.0 % (21.0-51.0); %Monocytes 9.6 % (0.0-10.0); %Neutrophils 71.7 % (42.0-75.0); Hematocrit 29.7 % (36.0-47.0); Hemoglobin 9.1 g/dL (12.0-16.0); Mean Corpuscular Hemoglobin 28.6 pg (27.0-31.0); Mean Corpuscular Volume 93.4 fL (78.0-98.0); Platelet Count 568 10x3/uL (130-400); Red Blood Cell (RBC) Count 3.18 mill/uL (4.20-5.40); White Blood Cell (WBC) Count 8.35 10x3/uL (4.8-10.8)
[2024-11-22 20:22] LABS: ALT (SGPT) Less than 7 U/L (Less than 34); AST (SGOT) 18 U/L (11-34); Albumin 3.5 g/dL (3.1-4.5); Alkaline Phosphatase 80 U/L (40-110); Anion Gap 16 mmol/L (10-20); BUN (Urea Nitrogen) 17 mg/dL (9.8-20.1); Bilirubin, Total 0.1 mg/dL (0.3-1.2); Calc. Creatinine Clearance 0 mL/min (70-130); Calcium 10.0 mg/dL (7.8-10.44); Carbon Dioxide 24 mmol/L (22-29); Chloride 102 mmol/L (98-107); Globulin 4.3 g/dL (2.4-3.5); Glucose 112 mg/dL (70-105); Potassium 4.4 mmol/L (3.5-5.1); Sodium 138 mmol/L (136-145)
== END 2024-11-23 00:12 | disposition home or self-care (01) ==
LOC: ERS 16:37
DX: M79.89 Other specified soft tissue disorders (principal); Z86.718 Personal history of other venous thrombosis and embolism; J44.9 Chronic obstructive pulmonary disease, unspecified; F17.290 Nicotine dependence, other tobacco product, uncomplicated; Z79.01 Long term (current) use of anticoagulants
CPT/HCPCS: 71275; 80053; 85025; 85379; 93971; J1885

== ENCOUNTER 2025-02-13 06:58 | Emergency (ER) | payer OTHER ==
[2025-02-13] MEDS ORDERED: HYDROcodone/Acetaminophen 10/325 mg Tablet ONE (07:16)
[2025-02-13 07:52] LABS: #Basophils 0.05 10x3/uL (0.0-0.2); #Eosinophils 0.63 10x3/uL (0.0-0.7); #Monocytes 1.08 10x3/uL (0.11-0.59); #Neutrophils 4.09 10x3/uL (1.40-6.50); %Basophils 0.6 % (0.0-1.0); %Eosinophils 8.1 % (0.0-10.0); %Lymphocytes 24.5 % (21.0-51.0); %Monocytes 13.9 % (0.0-10.0); %Neutrophils 52.8 % (42.0-75.0); Hematocrit 35.7 % (36.0-47.0); Hemoglobin 11.1 g/dL (12.0-16.0); Mean Corpuscular Hemoglobin 26.3 pg (27.0-31.0); Mean Corpuscular Volume 84.6 fL (78.0-98.0); Platelet Count 320 10x3/uL (130-400); Red Blood Cell (RBC) Count 4.22 mill/uL (4.20-5.40); White Blood Cell (WBC) Count 7.76 10x3/uL (4.8-10.8)
[2025-02-13 08:08] LABS: ALT (SGPT) 10 U/L (Less than 34); AST (SGOT) 24 U/L (11-34); Albumin 3.7 g/dL (3.1-4.5); Alkaline Phosphatase 67 U/L (40-110); Anion Gap 16 mmol/L (10-20); BUN (Urea Nitrogen) 15 mg/dL (9.8-20.1); Bilirubin, Total 0.2 mg/dL (0.3-1.2); Calc. Creatinine Clearance 0 mL/min (70-130); Calcium 9.8 mg/dL (7.8-10.44); Carbon Dioxide 24 mmol/L (22-29); Chloride 101 mmol/L (98-107); Globulin 4.4 g/dL (2.4-3.5); Glucose 92 mg/dL (70-105); Potassium 4.4 mmol/L (3.5-5.1); Sodium 137 mmol/L (136-145)
[2025-02-13] MEDS ORDERED: Gabapentin 300 MG CAP ONE (09:53)
[2025-02-13] MEDS ORDERED: Ketorolac Tromethamine 30 MG (1 mL) VIAL ONE (10:24)
[2025-02-13 11:42] LABS: Bacteria/HPF None Seen HPF (None Seen); CAUTI Indications for Culture Immunosuppressed; Glucose, Urine (Dipstick) Normal (Negative); Leukocyte Negative Leu/uL (Negative); Protein, Urine (Dipstick) Negative (Neg-Trace); RBC/HPF 0-3 HPF (0-3); Specific Gravity, Urine 1.017 (1.002-1.036); WBC/HPF 0-3 HPF (0-3)
[2025-02-13 11:44] LABS: Urine Culture Reflex Yes Yes
[2025-02-13 11:52] LABS: Cocaine Metabolite Screen Negative (Negative); THC/Cannabinoid Screen Negative (Negative); Tricyclic Screen Negative (Negative)
[2025-02-13 12:06] LABS: Acetaminophen Less than 10 mcg/mL (Less than 10); Salicylate Less than 8.0 mg/dL (Less than 8.0)
== END 2025-02-13 12:18 | disposition home or self-care (01) ==
LOC: ERS 06:58
DX: S60.222A Contusion of left hand, initial encounter (principal); J44.9 Chronic obstructive pulmonary disease, unspecified; F17.200 Nicotine dependence, unspecified, uncomplicated; Z86.711 Personal history of pulmonary embolism; W22.8XXA Striking against or struck by other objects, initial encounter
CPT/HCPCS: 73130; 80053; 80306; 80307; 81001; 83605; 85025; 86141; 87086; J1885; 96374

== ENCOUNTER 2025-02-16 11:29 | Inpatient (IN) | payer OTHER ==
[2025-02-16] MEDS ORDERED: fentaNYL PF 100 MCG/2 ML SYRINGE ONE ×2 (13:31→18:27)
[2025-02-16] MEDS ORDERED: Ondansetron PF 4 MG/2 ML Vial ONE (13:31)
[2025-02-16] MEDS ORDERED: Lidocaine 1% PF 5 ML VIAL ONE (13:31)
[2025-02-16 13:50] LABS: #Basophils 0.04 10x3/uL (0.0-0.2); #Eosinophils 0.51 10x3/uL (0.0-0.7); #Monocytes 1.15 10x3/uL (0.11-0.59); #Neutrophils 5.11 10x3/uL (1.40-6.50); %Basophils 0.5 % (0.0-1.0); %Eosinophils 6.3 % (0.0-10.0); %Lymphocytes 15.9 % (21.0-51.0); %Monocytes 14.1 % (0.0-10.0); %Neutrophils 62.8 % (42.0-75.0); Hematocrit 29.3 % (36.0-47.0); Hemoglobin 9.0 g/dL (12.0-16.0); Mean Corpuscular Hemoglobin 26.6 pg (27.0-31.0); Mean Corpuscular Volume 86.7 fL (78.0-98.0); Platelet Count 263 10x3/uL (130-400); Red Blood Cell (RBC) Count 3.38 mill/uL (4.20-5.40); White Blood Cell (WBC) Count 8.13 10x3/uL (4.8-10.8)
[2025-02-16 14:09] LABS: INR-International Normal Ratio 1.0; PTT 32.9 sec (22.9-36.1); Prothrombin Time 13.3 sec (12.0-14.7)
[2025-02-16 14:49] LABS: D-Dimer Test 5.27 mcg/mL (0.27-0.43)
[2025-02-16] MEDS ORDERED: Bacitracin Zinc Ointment 30 gm TUBE ONE (16:58)
[2025-02-16] MEDS ORDERED: Tranexamic Acid 1,000 MG/10 ML VIAL ONE (17:06)
[2025-02-16] MEDS ORDERED: Thrombin 5000 UNITS/5 ML VIAL ONE (17:06)
[2025-02-16] MEDS ORDERED: PHENYLEPHRINE-NS 100 MCG/ML 10 ML SYRINGE ONE (17:24)
[2025-02-16] MEDS ORDERED: PROPOFOL 200 MG/20 ML VIAL ONE (17:24)
[2025-02-16] MEDS ORDERED: HYDROmorphone 2 MG/ML VIAL ONE (18:27)
[2025-02-16] MEDS ORDERED: Bisacodyl 10 MG SUPP PR PRN (18:42)
[2025-02-16] MEDS ORDERED: Milk Of Magnesia 30 ML UDCUP PO PRN (18:42)
[2025-02-16] MEDS ORDERED: Communication Order-Pharmacy FS SCH (18:45)
[2025-02-16] MEDS ORDERED: Meperidine HCl/PF 25 MG (1 mL) VIAL IM PRN (18:51)
[2025-02-16] MEDS: Aspirin 81 mg Enteric Coated Tablet PO SCH (23:59)
[2025-02-17 00:05] VITALS: BMI 26.0
[2025-02-17] MEDS: HYDROcodone/Acetaminophen 10/325 mg Tablet PO PRN (02:27)
[2025-02-17] MEDS: Vancomycin 1 GM in Premix 1 BAG IVPB SCH (05:23)
[2025-02-17] MEDS: HYDROcodone/Acetaminophen 5/325 mg Tablet PO PRN (05:32)
[2025-02-17 07:21] LABS: #Basophils Less than 0.03 10x3/uL (0.0-0.2); #Eosinophils Less than 0.03 10x3/uL (0.0-0.7); #Monocytes 0.34 10x3/uL (0.11-0.59); #Neutrophils 3.81 10x3/uL (1.40-6.50); %Basophils 0.0 % (0.0-1.0); %Eosinophils 0.0 % (0.0-10.0); %Lymphocytes 17.6 % (21.0-51.0); %Monocytes 6.7 % (0.0-10.0); %Neutrophils 75.3 % (42.0-75.0); Hematocrit 29.6 % (36.0-47.0); Hemoglobin 9.2 g/dL (12.0-16.0); Mean Corpuscular Hemoglobin 26.6 pg (27.0-31.0); Mean Corpuscular Volume 85.5 fL (78.0-98.0); Platelet Count 327 10x3/uL (130-400); Red Blood Cell (RBC) Count 3.46 mill/uL (4.20-5.40); White Blood Cell (WBC) Count 5.06 10x3/uL (4.8-10.8)
[2025-02-17] MEDS: Ibuprofen 800 MG TAB PO PRN (15:51)
[2025-02-17 16:18] LABS: ALT (SGPT) 9 U/L (Less than 34); AST (SGOT) 19 U/L (11-34); Albumin 3.2 g/dL (3.1-4.5); Alkaline Phosphatase 58 U/L (40-110); Anion Gap 21 mmol/L (10-20); BUN (Urea Nitrogen) 17 mg/dL (9.8-20.1); Bilirubin, Total 0.2 mg/dL (0.3-1.2); Calc. Creatinine Clearance 85 mL/min (70-130); Calcium 9.5 mg/dL (7.8-10.44); Carbon Dioxide 21 mmol/L (22-29); Chloride 105 mmol/L (98-107); Globulin 4.3 g/dL (2.4-3.5); Glucose 191 mg/dL (70-105); Potassium 4.4 mmol/L (3.5-5.1); Sodium 143 mmol/L (136-145)
[2025-02-17] MEDS: lamoTRIgine 25 MG TAB PO SCH (20:55)
[2025-02-18] MEDS: HYDROmorphone 0.5 MG/0.5 ML SYRINGE SLOW IVP PRN (04:58)
[2025-02-18] MEDS: TETANUS AND DIPHTHERIA TOX/PF 0.5 ML DISP.SYRIN IM SCH (12:53)
[2025-02-18] MEDS: TETANUS, DIPHTHERIA TOX,ADULT (TDVAX) 0.5 ML VIAL IM ONE (12:56)
[2025-02-18 13:10] VITALS: BMI 26.0
[2025-02-18] MEDS: Vancomycin 1.5 GM / NS 500ML VIAL-2-BAG IVPB SCH (15:02)
[2025-02-18] MEDS ORDERED: Vancomycin 1 GM in Premix 1 BAG IVPB SCH (21:00)
[2025-02-18] MEDS: Vancomycin 1 GM in Premix 1 BAG IVPB SCH (23:28)
[2025-02-19 06:46] LABS: Vancomycin, Random 26.3 ug/mL (See Comment)
[2025-02-19 12:05] LABS: Calc. Creatinine Clearance 100.0 mL/min (70-130)
[2025-02-20] MEDS ORDERED: Lidocaine 1% PF 5 ML VIAL ONE (07:43)
[2025-02-20] MEDS ORDERED: Ondansetron PF 4 MG/2 ML Vial ONE (07:43)
[2025-02-20] MEDS ORDERED: fentaNYL PF 100 MCG/2 ML SYRINGE ONE (07:43)
[2025-02-20] MEDS ORDERED: Adalimumab [Humira Pen] 40 MG/0.8 ML Pen.Ij.Kit SC SCH (09:00)
[2025-02-20] MEDS ORDERED: Bacitracin Zinc Ointment 30 gm TUBE ONE (09:04)
[2025-02-20] MEDS ORDERED: HYDROmorphone 0.5 MG/0.5 ML SYRINGE ONE (09:49)
[2025-02-20] MEDS: Apixaban 5 MG TAB PO SCH (11:42)
[2025-02-21 17:16] VITALS: BP 160/90; TEMP 98.3
== END 2025-02-21 17:05 | disposition home or self-care (01) | DRG 513 ==
LOC: SDC 11:29 → T4-B 18:25
PROVIDERS: ADMIT Orthopaedic Surgery Hand Surgery; ATTEND Physician Assistant
PROC: 0LB80ZZ Excision of Left Hand Tendon, Open Approach (ICD-10-PCS; 2025-02-16)
PROC: 0J9K0ZZ Drainage of Left Hand Subcutaneous Tissue and Fascia, Open Approach (ICD-10-PCS; 2025-02-16)
PROC: 3E0234Z Introduction of Serum, Toxoid and Vaccine into Muscle, Percutaneous Approach (ICD-10-PCS; 2025-02-16)
PROC: 3E03329 Introduction of Other Anti-infective into Peripheral Vein, Percutaneous Approach (ICD-10-PCS; 2025-02-16)
PROC: 0HRGXK3 Replacement of Left Hand Skin with Nonautologous Tissue Substitute, Full Thickness, External Approach (ICD-10-PCS; principal; 2025-02-20)
PROC: 0JBK0ZZ Excision of Left Hand Subcutaneous Tissue and Fascia, Open Approach (ICD-10-PCS; 2025-02-20)
PROC: 05HY33Z Insertion of Infusion Device into Upper Vein, Percutaneous Approach (ICD-10-PCS; 2025-02-20)
PROC: 3E04329 Introduction of Other Anti-infective into Central Vein, Percutaneous Approach (ICD-10-PCS; 2025-02-20)
DX: M65.142 Other infective (teno)synovitis, left hand (principal); C49.9 Malignant neoplasm of connective and soft tissue, unspecified; L02.512 Cutaneous abscess of left hand; D68.51 Activated protein C resistance; Z16.19 Resistance to other specified beta lactam antibiotics; I96 Gangrene, not elsewhere classified; R91.8 Other nonspecific abnormal finding of lung field; J44.9 Chronic obstructive pulmonary disease, unspecified; F41.9 Anxiety disorder, unspecified; B95.61 Methicillin susceptible Staphylococcus aureus infection as the cause of diseases classified elsewhere; F31.9 Bipolar disorder, unspecified; Z86.718 Personal history of other venous thrombosis and embolism; Z88.8 Allergy status to other drugs, medicaments and biological substances; Z79.82 Long term (current) use of aspirin; Z79.01 Long term (current) use of anticoagulants; Z79.899 Other long term (current) drug therapy; Z98.890 Other specified postprocedural states; Z90.89 Acquired absence of other organs; Z90.710 Acquired absence of both cervix and uterus; Z23 Encounter for immunization
CPT/HCPCS: 36415; 36416; 80053; 80202; 82565; 85025; 85379; 85610; 85730; 86141; 87070; 87077; 87186; 87205; 93005; 93010; 97139; C9363-KX-JC; J0878; J1100; J1171; J2250; J2405; J2550; J2704; J3010; J3373; J7030; J7050

== ENCOUNTER 2025-02-27 11:16 | Emergency (ER) | payer OTHER | END 2025-02-27 13:17 | disposition home or self-care (01) | LOC: ERS 11:16 | DX: Z45.2 Encounter for adjustment and management of vascular access device (principal); J44.9 Chronic obstructive pulmonary disease, unspecified; F17.210 Nicotine dependence, cigarettes, uncomplicated; F17.290 Nicotine dependence, other tobacco product, uncomplicated | CPT/HCPCS: 99282 ==

== ENCOUNTER 2025-03-13 19:56 | Emergency (ER) | payer OTHER | END 2025-03-13 21:51 | disposition home or self-care (01) | LOC: ERS 19:56 | DX: T81.9XXA Unspecified complication of procedure, initial encounter (principal); F17.290 Nicotine dependence, other tobacco product, uncomplicated; F17.210 Nicotine dependence, cigarettes, uncomplicated | CPT/HCPCS: 99282 ==